=== PATIENT | female | born 1955 | race Caucasian/White ===

== ENCOUNTER → 2020-01-09 | Outpatient (CLI) | payer BC ==
[~2020-01-09] MED LIST: PROHANCE 279.3MG/ML 15ML VIAL (A9576) As Ordered ONE; PROHANCE 279.3MG/ML 5ML VIAL (A9576) As Ordered ONE
--- NOTE | 2020-01-09 17:56 | REP ---
MRI lumbar spine without and with IV gadolinium: History: Numbness in the legs. Radiculopathy. Left lower extremity radiculopathy. No comparison lumbar imaging. Technique: Sagittal and axial T1 and T2-weighted scans are acquired in the usual fashion with and without fat saturation. Sequences include spin echo, turbo spin-echo, and STIR imaging sequences. Gadolinium enhancement dose is 18 ml of intravenous ProHance. MRI findings: There is a large Schmorl's node and some concavity to the superior endplate at the L1 vertebral body. There are similar findings less pronounced at L3. Anterior vertebral body height is preserved at these levels. There is no evidence of acute depression fracture or collapse. There are reactive marrow changes associated with degenerative disc disease at several levels. Cortical and medullary bone signal intensity are otherwise normal. The tip of the conus medullaris is normal in position and appearance at T12-L1. No extra vertebral abnormality is observed. There is a mild levoconvex scoliotic curve. There is diffuse bulging of the posterior disc margin at T12-L1. This indents the ventral margin of the thecal sac but there is no evidence of central canal stenosis or compression of the conus. No neural foraminal encroachment is appreciated. Axial and sagittal images taken at L1-L2 demonstrate mild diffuse disc bulging. No other finding. At L2-3, there is diffuse disc bulging. There is mild central canal stenosis due to disc bulging and developmentally short pedicles in combination with mild ligamentum flavum and facet hypertrophy. There is some dorsal epidural fat which limits the diameter of the thecal sac. The AP dimension of the thecal sac in the midline at L2-L3 is 7.9 mm. There is left-sided neural foraminal encroachment from discogenic spurring, disc bulging, and facet hypertrophy. At L3-L4, there is mild diffuse disc bulging indenting the ventral subarachnoid space. No foraminal narrowing is seen. Canal size is borderline. Midline AP dimension of the thecal sac is 9.3 mm. There is mild facet and ligamentum flavum hypertrophy. At L4-L5, there is mild central canal stenosis due to diffuse disc bulging, ligamentum flavum and facet hypertrophy which is moderate, and developmentally short pedicles. No neural foraminal encroachment is appreciated. Midline AP dimension of the thecal sac at the L4-5 level is 8.5 mm. At L5-S1, there is degenerative disc and osteoarthritic facet disease. There is a 3 mm grade 1 spondylolisthesis of L5 anterior with respect S1. I suspect I suspect bilateral pars defects as well and L5. There is considerable osteoarthritic facet hypertrophy and L5-S1 bilaterally. No disc protrusion is seen. No significant neural foraminal encroachment is seen. Impression: Degenerative spondylosis changes with multilevel degenerative disc and osteoarthritic facet disease. Mild scoliosis. There is mild central canal stenosis at L2-3 and L4-5. Electronically Signed by Te Love MD 01/09/2020 07:38 P
== END ==
LOC: M RAD 14:35
DX: M54.16 Radiculopathy, lumbar region (principal)
CPT/HCPCS: 72158; A9576